=== PATIENT | female | born 1985 | race African-American/Black ===

== ENCOUNTER 2017-08-29 09:47 | Emergency (ER) | payer MEDICAID ==
[~2017-08-29] VITALS: Ht 177.8 cm; Wt 64.0 kg
[2017-08-29 10:56] VITALS: BP 97/64
== END 2017-08-29 12:14 | disposition home or self-care (01) ==
LOC: ER 10:50
DX: S62.397A Other fracture of fifth metacarpal bone, left hand, initial encounter for closed fracture (principal); F41.9 Anxiety disorder, unspecified; Z98.890 Other specified postprocedural states; W22.01XA Walked into wall, initial encounter; Y93.89 Activity, other specified; Y92.018 Other place in single-family (private) house as the place of occurrence of the external cause
CPT/HCPCS: 29125; 73130; 81025; 87070; 87430; 99285

== ENCOUNTER 2018-01-25 22:12 | Emergency (ER) | payer MEDICAID ==
[~2018-01-25] VITALS: Ht 177.8 cm; Wt 64.6 kg
[2018-01-26] MEDS ORDERED: ACETAMINOPHEN 325MG TABLET PO ONE (01:00)
[2018-01-26] MEDS ORDERED: IBUPROFEN 400MG TABLET PO ONE (01:00)
[2018-01-26] MEDS ORDERED: METOCLOPRAMIDE HCL 10MG TABLET PO ONE (01:00)
[2018-01-26] MEDS ORDERED: DIPHENHYDRAMINE 50MG CAPSULE PO ONE (01:00)
[2018-01-26 01:52] VITALS: BP 120/68
== END 2018-01-26 01:52 | disposition home or self-care (01) ==
LOC: ER 22:12
DX: R51 Headache (principal); F32.9 Major depressive disorder, single episode, unspecified; F41.9 Anxiety disorder, unspecified; F17.200 Nicotine dependence, unspecified, uncomplicated; Z98.890 Other specified postprocedural states
CPT/HCPCS: 99284; J8597; Q0163